=== PATIENT | female | born 2000 | race Caucasian/White ===

== ENCOUNTER 2020-05-25 19:03 | Emergency (ER) | payer MEDICAID ==
[~2020-05-25] VITALS: Ht 162.6 cm; Wt 72.1 kg
[2020-05-25 19:29] VITALS: Ht 162.6 cm; Wt 72.1 kg
[2020-05-25 23:30] VITALS: BP 118/78
== END 2020-05-25 23:58 | disposition home or self-care (01) ==
LOC: ED 19:03
DX: S53.105A Unspecified dislocation of left ulnohumeral joint, initial encounter (principal); V00.121A Fall from non-in-line roller-skates, initial encounter; Y93.89 Activity, other specified; Y92.89 Other specified places as the place of occurrence of the external cause; Y99.8 Other external cause status
CPT/HCPCS: J2405; J3010; J3490; J7030